=== PATIENT | male | born 1970 | race Caucasian/White ===

== ENCOUNTER 2018-11-27 09:12 | Emergency (ER) | payer MEDICAID ==
[2018-11-27 09:20] VITALS: BP 120/78
[2018-11-27] MEDS ORDERED: DEXAMETHASONE 4 MG/ML, 1ML ONE (09:45)
[2018-11-27] MEDS ORDERED: DEXAMETHASONE 4 MG/ML, 1ML PO ONE (10:00)
--- NOTE | 2018-11-27 10:01 | NUR ---
Patient/Caregiver given discharge instructions and they have confirmed that they understand the instructions. Patient ambulatory with steady gait. PT LEFT WITH ALL PERSONAL BELONGINGS.
[2018-11-27] MEDS ORDERED: PLEASE ENTER WEIGHT MC SCH (10:30)
== END 2018-11-27 10:03 | disposition home or self-care (01) ==
LOC: ED 09:20
DX: J02.9 Acute pharyngitis, unspecified (principal); Z87.891 Personal history of nicotine dependence
CPT/HCPCS: 99283; J1100

== ENCOUNTER 2020-05-31 10:25 | Emergency (ER) | payer SELFPAY ==
[~2020-05-31] VITALS: Ht 172.7 cm; Wt 61.9 kg
[2020-05-31] MEDS ORDERED: ACETAMINOPHEN 325 MG TABLET ONE (10:58)
[2020-05-31] MEDS ORDERED: KETOROLAC 30 MG/1 ML ONE (10:58)
--- NOTE | 2020-05-31 10:58 | NUR ---
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
[2020-05-31] MEDS ORDERED: ACETAMINOPHEN 325 MG TABLET PO ONE (11:00)
[2020-05-31] MEDS ORDERED: KETOROLAC 30 MG/1 ML IM ONE (11:00)
[2020-05-31 11:03] VITALS: BP 129/99
--- NOTE | 2020-05-31 11:03 | NUR ---
pt medicated per mar
== END 2020-05-31 11:15 | disposition home or self-care (01) ==
LOC: ED 11:10
DX: S63.501A Unspecified sprain of right wrist, initial encounter (principal); N18.9 Chronic kidney disease, unspecified; F17.200 Nicotine dependence, unspecified, uncomplicated; X58.XXXA Exposure to other specified factors, initial encounter; Y93.89 Activity, other specified; Y92.89 Other specified places as the place of occurrence of the external cause; Y99.8 Other external cause status
CPT/HCPCS: 29125; 73110; 96372; 99283; J1885

== ENCOUNTER 2020-12-05 12:22 | Inpatient (IN) | payer OTHER ==
[~2020-12-05] VITALS: Ht 172.7 cm; Wt 70.4 kg
--- NOTE | 2020-12-05 12:37 | NUR ---
PT HERE WITH C/O RIGHT GROIN PAIN THAT RADIATES DOWN LEG, NO SWELLING OR REDNESS NOTED.
[2020-12-05 13:14] LABS: BASOPHILS % (AUTO) 1 % (0-1); EOSINOPHILS % (AUTO) 5 % (1-7); LYMPHOCYTES % (AUTO) 28 % (22-44); MEAN CORPUSCULAR HEMOGLOBIN 31.9 pg (27.5-34.5); MEAN CORPUSCULAR HGB CONC 33.7 g/dL (33.2-36.2); MEAN PLATELET VOLUME 6.7 fL (7.4-10.4); MONOCYTES % (AUTO) 8 % (2-9); NEUTROPHILS % (AUTO) 58 % (42-75); PLATELET COUNT 352 x10^3/uL (130-400); RED BLOOD COUNT 4.28 x10^6/uL (4.38-5.82); RED CELL DISTRIBUTION WIDTH 13.9 % (9.4-14.8)
[2020-12-05 13:21] LABS: MD NO
[2020-12-05 13:24] LABS: ALANINE AMINOTRANSFERASE 34 U/L (12-78); ALBUMIN 3.9 g/dL (3.4-5.0); ANION GAP 5 mmol/L (5-15); CALCIUM 8.6 mg/dL (8.5-10.1); CHLORIDE 106 mmol/L (98-107); CREATININE 1.07 mg/dL (0.7-1.3)
[2020-12-05 13:26] LABS: ALKALINE PHOSPHATASE 76 U/L (45-117); BILIRUBIN,TOTAL 0.4 mg/dL (0.2-1.0); TOTAL PROTEIN 6.6 g/dL (6.4-8.2)
[2020-12-05 13:34] LABS: MICROSCOPIC NOT IND
[2020-12-05] MEDS ORDERED: HYDROmorphone 1 MG/ML, 1ML INJ IV ONE ×2 (14:00→15:00)
[2020-12-05] MEDS ORDERED: ONDANSETRON 2MG/ML, 2ML IVPush ONE (14:00)
[2020-12-05] MEDS ORDERED: SODIUM CHLORIDE 0.9% 1,000ML IVBOLUS ONE (14:00)
[2020-12-05] MEDS ORDERED: HYDROmorphone 1 MG/ML, 1ML INJ ONE ×2 (14:08→15:11)
[2020-12-05] MEDS ORDERED: ONDANSETRON 2MG/ML, 2ML ONE (14:08)
--- NOTE | 2020-12-05 14:21 | NUR ---
POC DISCUSSED WITH PT. BP AND PULSE OX PLACED, PIV EST AND PT MED NOTED. CALL LIGHT W/I REACH. DR VASQUEZ UPDATED
--- NOTE | 2020-12-05 14:52 | NUR ---
DR VASQUEZ AT BEDSIDE, ATTEMPT REDUCTION W/O SUCCESS.
--- NOTE | 2020-12-05 15:21 | NUR ---
PT MEDICATED PER EMAR. RAPID COVID SWAB OBTAINED AND WALKED TO LAB. RESP EVEN AND UNLABORED, NADN. AWAITING CT.
--- NOTE | 2020-12-05 15:50 | NUR ---
PT TO CT WITH TECH TRANSPORT
[2020-12-05] MEDS ORDERED: OMNIPAQUE 350 MG/ML, 100ML BOTTLE ONE (15:59)
[2020-12-05] MEDS ORDERED: hydrALAzine 20 MG/ML, 1ML IVPush PRN (16:00)
[2020-12-05] MEDS ORDERED: NICOTINE 14MG/24 HR PATCH.TD24 TD SCH (16:00)
[2020-12-05] MEDS ORDERED: ONDANSETRON 2MG/ML, 2ML IVPush PRN (16:00)
[2020-12-05] MEDS ORDERED: SODIUM CHLORIDE 0.9% 1,000 ML IV SCH (16:00)
[2020-12-05] MEDS ORDERED: MELATONIN 5 MG TABLET PO PRN (16:00)
[2020-12-05] MEDS ORDERED: POLYETHYLENE GLYCOL 17 GM PACKET PO PRN (16:00)
[2020-12-05] MEDS ORDERED: BISACODYL 10 MG SUPP PR PRN (16:00)
[2020-12-05] MEDS ORDERED: ACETAMINOPHEN 325 MG TABLET PO PRN (16:00)
[2020-12-05] MEDS ORDERED: NICOTINE 14MG/24 HR PATCH.TD24 ONE (16:51)
[2020-12-05 17:31] VITALS: BP 131/92
[2020-12-05] MEDS ORDERED: EPINEPHRINE 1 MG/ML, 1ML ONE (17:32)
[2020-12-05] MEDS ORDERED: BUPIVACAINE/PF 0.5% ONE (17:32)
== END 2020-12-05 18:15 | disposition left against medical advice (07) | DRG 392 ==
LOC: OR 15:32 → SUATTDRO 15:35 → 4NE 17:34
PROVIDERS: ADMIT Hospitalist; ATTEND Hospitalist
DX: R10.31 Right lower quadrant pain (principal); F17.210 Nicotine dependence, cigarettes, uncomplicated; F31.9 Bipolar disorder, unspecified; N18.9 Chronic kidney disease, unspecified; G89.29 Other chronic pain; M54.9 Dorsalgia, unspecified; Z20.822 Contact with and (suspected) exposure to COVID-19
CPT/HCPCS: 36415; 96374; 96375; 99285; S0020; 74177; 76705; 80053; 81003; 85025; 87491; 87591; 87635; 93005; G0378; J0171; J1170; J2405; Q9967; J7030

== ENCOUNTER 2020-12-17 16:44 | Emergency (ER) | payer OTHER ==
[~2020-12-17] VITALS: Ht 172.7 cm; Wt 70.0 kg
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
[2020-12-17] MEDS ORDERED: HYDROcodone/APAP 5/325 TABLET ONE (18:05)
[2020-12-17 18:11] VITALS: BP 116/70
[2020-12-17] MEDS ORDERED: HYDROcodone/APAP 5/325 TABLET PO ONE (18:30)
== END 2020-12-17 18:21 | disposition home or self-care (01) ==
LOC: ED 18:00
DX: S92.911A Unspecified fracture of right toe(s), initial encounter for closed fracture (principal); G89.29 Other chronic pain; F17.210 Nicotine dependence, cigarettes, uncomplicated; X58.XXXA Exposure to other specified factors, initial encounter; Y93.89 Activity, other specified; Y92.009 Unspecified place in unspecified non-institutional (private) residence as the place of occurrence of the external cause; Y99.8 Other external cause status
CPT/HCPCS: 99283